=== PATIENT | male | born 1950 | race Caucasian/White ===

== ENCOUNTER 2017-01-25 11:37 | Day surgery (SDC) | payer BC ==
[2017-01-21 16:10] LABS: HEMOGLOBIN 12.6 g/dL (13.6-17.8)
[2017-01-21 16:11] LABS: HEMATOCRIT 37.5 % (40.0-51.0)
[2017-01-21 16:29] LABS: BUN (BLOOD UREA NITROGEN) 14 MG/DL (6-23); CALCIUM, SERUM 8.9 MG/DL (8.5-10.4); CHLORIDE, SERUM 104 MMOL/L (96-112); CO2 (CARBON DIOXIDE) 25 MMOL/L (24-34); SODIUM, SERUM 138 MMOL/L (135-148)
[2017-01-21 16:30] LABS: CREATININE 1.51 MG/DL (0.70-1.30); GFR AFRICAN AMERICAN 55 ML/MIN (>=60); GFR NON AFRICAN AMERICAN 47 ML/MIN (>=60); GLUCOSE, SERUM 131 MG/DL (60-99)
--- NOTE | ~2017-01-25 | OP ---
Record Of Operation [facility] [address] [place]. [address] NAME: YESI SCHAEFER : 50 STATUS : [facility]#: [id number] AGE: 66 ADM/REG DATE : 01/25/17 MR#: [id number] REPORT SERV DATE: 01/25/17 DICTATED BY: MAXIME DEL TORO DATE: 01/25/17 REPORT STATUS : Draft TRANSCRIBED BY: MODL DATE: 01/25/17 DATE OF PROCEDURE: 01/25/2017 PREOPERATIVE DIAGNOSIS: Left cervical lymphadenopathy with fine-needle aspiration biopsy suggestive of lymphoma. POSTOPERATIVE DIAGNOSIS: Left cervical lymphadenopathy with fine-needle aspiration biopsy suggestive of lymphoma. PROCEDURE: An excisional biopsy of left cervical lymph nodes. SURGEON: Maxime Del Toro M.D. ANESTHESIA: General endotracheal. ESTIMATED BLOOD LOSS: 5 mL. INTRAOPERATIVE FLUIDS: 550 mL crystalloid. INTRAOPERATIVE FINDINGS: Matted lymph nodes in the left neck with larger of these lymph nodes measure approximately 2 x 3 cm with a more posteriorly oriented lymph node with similar dimensions. The lymph nodes were sent as a fresh specimen for a rule out lymphoma workup. OPERATIVE PROCEDURE: The patient was identified in the holding room, transported to the operating room. In the operating room, patient was placed on the operating table in the supine position. Following induction of anesthesia, the patient was intubated without difficulty. There was no natural skin crease overlying the area of the lymph nodes in his neck. I did, therefore, diagram an incision paralleling the natural skin creases in the neck overlying the enlarged lymph nodes. This area was then injected with 1% lidocaine with 1:100,000 epinephrine. The patient was prepped and draped in a sterile fashion. An incision was created, the aforementioned area of the skin of the left neck. Dissection was carried through the thick subcutaneous tissue to identify the platysma muscle. The platysma muscle was sharply divided. Superior and inferior subplatysmal flaps were developed. Dissecting deeply to the platysma muscle, the more anteriorly located lymph node was identified. Dissection was carried around the periphery of the lymph node using a combination of blunt and sharp dissection with the dissection staying on the surface of the lymph node. The lymph node was removed and sent to surgical pathology for histologic evaluation. There was a pulsatile bleeder deeply within the operative bed which appeared to be a branch from the facial artery. This pulsatile vessel was suture ligated. A second similar size node was identified posterior to the previously removed lymph node. This lymph node was likewise removed using a combination of sharp and blunt dissection. Both specimens were sent to Surgical pathology fresh for a rule out lymphoma workup. Examination of the operative bed at this point revealed no residual bleeding source. Surgiflo was placed into the operative bed. The platysma muscle was closed with interrupted 3-0 Vicryl suture. An interrupted 3-0 chromic suture was placed for approximation of the subcutaneous tissues. A Record Of Operation [address] [address] NAME: YESI SCHAEFER : 50 STATUS : [facility]#: [id number] AGE: 66 ADM/REG DATE : 01/25/17 MR#: [id number] REPORT SERV DATE: 01/25/17 DICTATED BY: MAXIME DEL TORO DATE: 01/25/17 REPORT STATUS : Draft TRANSCRIBED BY: DANIELLE DATE: 01/25/17 running 5-0 Prolene suture was placed in a simple running fashion for skin closure. At the end of the operative procedure, the patient was awakened from anesthesia, extubated in the operating room and transported to the recovery room in good condition. The patient tolerated the procedure well. There were no apparent complications. Specimens included left level one cervical lymph nodes for rule out lymphoma workup. JOSELYN/DANIELLE Maxime Del Toro M.D. / [id number] CC: Cristhian Palacios DEBORAH WYATT
[~2017-01-25 11:37] MED LIST: CRESTOR10 PO; ELIQUIS 2.5 MG2.5 MG PO; INDE80 PO; JANUMET XR 1001 EACH PO; PRIN10 PO; TRULICITY0.75 MG/0. SQ
[2017-03-10] MEDS ORDERED: ATV.5 PO ×2 (01:00→21:05)
[2017-03-10] MEDS ORDERED: CRESTOR10 PO ×2 (01:01→21:10)
[2017-03-10] MEDS ORDERED: COMP10B PO ×2 (01:01→21:06)
[2017-03-10] MEDS ORDERED: JANUMET1 TA1 PO (01:02)
[2017-03-10] MEDS ORDERED: ELIQUIS 2.5 MG2.5 MG PO ×2 (01:02→21:04)
[2017-03-10] MEDS ORDERED: PRIN10 PO (01:03)
[2017-03-10] MEDS ORDERED: LOM PO ×2 (01:04→21:04)
[2017-03-10] MEDS ORDERED: ZOFRAN8 PO ×2 (01:05→21:05)
[2017-03-10] MEDS ORDERED: INNOPRAN XL80 MG PO (01:05)
[2017-03-10] MEDS ORDERED: TRULICITY0.75 MG/0. SQ ×2 (01:06→21:04)
[2017-03-10] MEDS ORDERED: PRIN10 (21:05)
[2017-03-10] MEDS ORDERED: INDE80LA PO (21:09)
[2017-03-10] MEDS ORDERED: JANUMET XR 1001 EACH PO (21:10)
[2017-03-10] MEDS ORDERED: KDUR20 PO (21:11)
[2017-03-10] MEDS ORDERED: ACET500CAP PO (21:11)
[2017-03-10] MEDS ORDERED: CHEMOTHERAPY IV (21:12)
== END 2017-01-25 18:07 | disposition home or self-care (01) ==
LOC: SDC 11:37
PROVIDERS: Otolaryngology
PROC: 07B20ZX Excision of Left Neck Lymphatic, Open Approach, Diagnostic (ICD-10-PCS; principal; 2017-01-25 13:15)
DX: C81.11 Nodular sclerosis Hodgkin lymphoma, lymph nodes of head, face, and neck (principal); I10 Essential (primary) hypertension; E78.00 Pure hypercholesterolemia, unspecified; E11.9 Type 2 diabetes mellitus without complications; E66.9 Obesity, unspecified; Z68.38 Body mass index [BMI] 38.0-38.9, adult; Z86.718 Personal history of other venous thrombosis and embolism; Z79.01 Long term (current) use of anticoagulants; Z79.84 Long term (current) use of oral hypoglycemic drugs; Z79.899 Other long term (current) drug therapy
CPT/HCPCS: 80048; 82962; 85014; 85018; 88307; 88333; 88341; 88342; 93005; A9270-GY; J0690; J2250; J2370; J2405; J2710; J3010

== ENCOUNTER 2017-02-15 06:01 | Day surgery (SDC) | payer BC ==
[2017-02-09 17:44] LABS: BASOPHILS 0.3 %; BASOPHILS ABSOLUTE 0.04 10/3/uL (0.0-0.16); EOSINOPHILS 4.2 %; EOSINOPHILS ABSOLUTE 0.53 10/3/uL (0.0-0.53); HEMOGLOBIN 13.3 g/dL (13.6-17.8); IMMATURE GRANULOCYTES 1.1 %; IMMATURE GRANULOCYTES ABSOLUTE 0.14 10/3/uL (0.0-0.11); LYMPHOCYTES 17.3 %; MEAN CORPUS HGB CONC 33.3 g/dL (32.0-36.0); MEAN CORPUSCULAR HEMOGLOB 29.6 pg (26.0-34.0); MEAN CORPUSCULAR VOLUME 88.9 fL (80-100); MONOCYTES 9.3 %; MONOCYTES ABSOLUTE 1.19 10/3/uL (0.21-1.20); NEUTROPHILS 67.8 %; NEUTROPHILS ABSOLUTE 8.63 10/3/uL (2.02-8.40); PLATELET COUNT 347 10/3/uL (150-400); RBC DISTRIBUTION WIDTH 14.9 % (12.0-16.0)
[2017-02-09 17:45] LABS: MANUAL DIFF NO %; WHITE BLOOD CELLS 12.7 10/3/uL (4.5-10.5)
[2017-02-09 17:59] LABS: BUN (BLOOD UREA NITROGEN) 14 MG/DL (6-23); CHLORIDE, SERUM 103 MMOL/L (96-112); CO2 (CARBON DIOXIDE) 28 MMOL/L (24-34); CREATININE 1.33 MG/DL (0.70-1.30); GFR AFRICAN AMERICAN 64 ML/MIN (>=60); GFR NON AFRICAN AMERICAN 55 ML/MIN (>=60)
[2017-02-09 18:00] LABS: CALCIUM, SERUM 9.9 MG/DL (8.5-10.4); GLUCOSE, SERUM 94 MG/DL (60-99); SODIUM, SERUM 129 MMOL/L (135-148)
--- NOTE | ~2017-02-15 | OP ---
Record Of Operation [facility] [address] [facility] [place]. [address] NAME: YESI SCHAEFER : 50 [place] : [place] [facility] [place] [id number] AGE: 66 ADM/REG DATE : 02/15/17 MR#: [id number] REPORT SERV DATE: 02/15/17 DICTATED BY: LONDON GASTELUM DATE: 02/15/17 REPORT STATUS : Draft TRANSCRIBED BY: MODL DATE: 02/15/17 DATE OF PROCEDURE: 02/15/2017 PREOPERATIVE DIAGNOSES: 1. Hodgkin lymphoma. 2. Need for central IV access for treatment. 3. Hypertension. 4. Hyperlipidemia. 5. History of deep venous thrombosis. 6. Diabetes mellitus type 2. 7. Morbid obesity. POSTOPERATIVE DIAGNOSES: 1. Hodgkin lymphoma. 2. Need for central IV access for treatment. 3. Hypertension. 4. Hyperlipidemia. 5. History of deep venous thrombosis. 6. Diabetes mellitus type 2. 7. Morbid obesity. PROCEDURE: Left subclavian vein Port-A-Cath placement with intraoperative fluoroscopy. ANESTHESIA: MAC. LIME KILN WORKER: Amelia. COMPLICATIONS: None. DRAINS: None. ESTIMATED BLOOD LOSS: 10 mL. OPERATIVE TECHNIQUE: The patient was brought to the operating room and placed on the table in supine position. He had preoperative IV antibiotics. He had sequential hose in place. He voided prior to the procedure. He underwent adequate anesthesia and was prepped and draped in sterile fashion. A time-out was completed. Local anesthesia was instilled to the left subclavian vein region and a field block was completed. A needle was used to access the left subclavian vein and a wire was passed via Seldinger technique. It was confirmed in the central venous system. A transverse incision was made with a 15 blade knife at the wire insertion site on the skin, it was carried down through the subcutaneous tissue and anterior fascia using electrocautery. A pocket was then bluntly created inferiorly and the preassembled and flush catheter was then secured to the chest wall. The fluoroscopy was used to measure the proposed length of the catheter. It was then cut at 25 cm at the second third intercostal interspace based on the images. At this point, the dilator and sheath were placed over the wire and the wire and dilator were removed. The catheter was inserted Record Of Operation [facility] [address] [place]. [address] NAME: YESI SCHAEFER : 50 STATUS : [place] [facility] [place] [id number] AGE: 66 ADM/REG DATE : 02/15/17 MR#: [id number] REPORT SERV DATE: 02/15/17 DICTATED BY: LONDON GASTELUM DATE: 02/15/17 REPORT STATUS : Draft TRANSCRIBED BY: MODL DATE: 02/15/17 and advanced fully through the sheath, which was then peeled away. The catheter was then accessed and noted to aspirate easily. It was flushed with heparinized solution. The fluoroscopy revealed it to be in good position. The subcutaneous tissues were then reapproximated using interrupted 3-0 Vicryl sutures, followed by running Monocryl subcuticular stitch, and Dermabond. The catheter was accessed and noted to aspirate and was once again flushed with heparinized solution. Sterile dressing was applied. He was taken to recovery room for postoperative chest x-ray and then proposed treatment per the catheter today. /DANIELLE London Gastelum M.D. / [id number] CC: Cristhian Parekh DEBORAH WYATT Mark S Womack IV, M.D.
[2017-02-15 06:39] LABS: BUN (BLOOD UREA NITROGEN) 11 MG/DL (6-23); CALCIUM, SERUM 9.3 MG/DL (8.5-10.4); CHLORIDE, SERUM 102 MMOL/L (96-112); CO2 (CARBON DIOXIDE) 27 MMOL/L (24-34); CREATININE 1.44 MG/DL (0.70-1.30); GFR AFRICAN AMERICAN 58 ML/MIN (>=60); GFR NON AFRICAN AMERICAN 50 ML/MIN (>=60); POTASSIUM, SERUM 4.3 MMOL/L (3.5-5.3); SODIUM, SERUM 134 MMOL/L (135-148)
[2017-02-15 06:42] LABS: GLUCOSE, SERUM 120 MG/DL (60-99)
[2017-03-10] MEDS ORDERED: ATV.5 PO ×2 (01:00→21:05)
[2017-03-10] MEDS ORDERED: COMP10B PO ×2 (01:01→21:06)
[2017-03-10] MEDS ORDERED: CRESTOR10 PO ×2 (01:01→21:10)
[2017-03-10] MEDS ORDERED: JANUMET1 TA1 PO (01:02)
[2017-03-10] MEDS ORDERED: ELIQUIS 2.5 MG2.5 MG PO ×2 (01:02→21:04)
[2017-03-10] MEDS ORDERED: PRIN10 PO (01:03)
[2017-03-10] MEDS ORDERED: LOM PO ×2 (01:04→21:04)
[2017-03-10] MEDS ORDERED: INNOPRAN XL80 MG PO (01:05)
[2017-03-10] MEDS ORDERED: ZOFRAN8 PO ×2 (01:05→21:05)
[2017-03-10] MEDS ORDERED: TRULICITY0.75 MG/0. SQ ×2 (01:06→21:04)
[2017-03-10] MEDS ORDERED: PRIN10 (21:05)
[2017-03-10] MEDS ORDERED: INDE80LA PO (21:09)
[2017-03-10] MEDS ORDERED: JANUMET XR 1001 EACH PO (21:10)
[2017-03-10] MEDS ORDERED: ACET500CAP PO (21:11)
[2017-03-10] MEDS ORDERED: KDUR20 PO (21:11)
[2017-03-10] MEDS ORDERED: CHEMOTHERAPY IV (21:12)
== END 2017-02-15 12:27 | disposition home or self-care (01) ==
LOC: SDC 06:01
PROVIDERS: Surgery
PROC: 05H633Z Insertion of Infusion Device into Left Subclavian Vein, Percutaneous Approach (ICD-10-PCS; 2017-02-15)
PROC: B517YZA Fluoroscopy of Left Subclavian Vein using Other Contrast, Guidance (ICD-10-PCS; 2017-02-15)
PROC: 0JH60XZ Insertion of Tunneled Vascular Access Device into Chest Subcutaneous Tissue and Fascia, Open Approach (ICD-10-PCS; principal; 2017-02-15 07:45)
DX: C81.91 Hodgkin lymphoma, unspecified, lymph nodes of head, face, and neck (principal); E11.9 Type 2 diabetes mellitus without complications; E78.00 Pure hypercholesterolemia, unspecified; E78.5 Hyperlipidemia, unspecified; E66.01 Morbid (severe) obesity due to excess calories; I10 Essential (primary) hypertension; Z86.718 Personal history of other venous thrombosis and embolism; Z68.37 Body mass index [BMI] 37.0-37.9, adult; Z79.899 Other long term (current) drug therapy; Z98.890 Other specified postprocedural states
CPT/HCPCS: 71010; 76000; 77001; 80048; 82962; 85025; C1751; J0690; J2250; J2405; J3010; Q9967